=== PATIENT | female | born 1935 | race Caucasian/White ===

== ENCOUNTER 2023-11-28 11:00 | Emergency (ER) | payer MEDICARE, SELFPAY ==
[2023-11-28 11:06] VITALS: BP 140/94
[2023-11-28 11:19] VITALS: BMI 33.9
[2023-11-28 11:36] VITALS: BP 127/50
[2023-11-28 11:40] LABS: % Basophils 0.9 % (0-2); % Eosinophils 4.7 % (0-6); % Immature Granulocytes 0.4 % (0-0.5); % Lymphocytes 20.1 % (20.5-51.1); % Monocytes 9.9 % (1.7-9.3); Absolute Basophils 0.1 10^3/uL (0-0.2); Absolute Eosinophils 0.5 10^3/uL (0-0.7); Absolute Lymphocytes 2.3 10^3/uL (1.2-3.4); Absolute Monocytes 1.1 10^3/uL (0.1-0.6); Absolute Neutrophils 7.3 10^3/uL (1.4-6.5); Hematocrit 36.7 % (37.0-47.0); Hemoglobin 11.9 g/dL (12.0-16.0); Mean Corp Hgb Conc. 32.4 g/dL (33.0-37.0); Mean Corpuscular Hgb 30.1 pg (27.0-31.0); Mean Corpuscular Volume 92.7 fL (81.0-99.0); Mean Platelet Volume 10.1 fL (7.4-10.4); Nucleated Red Blood Cells % 0 %; Platelet Count 659 10^3/uL (130-400); Red Blood Cell Count 3.96 10^6/uL (4.20-5.40); Red Cell Dist. Width 14.4 % (11.5-14.5); White Blood Cell Count 11.4 10^3/uL (4.8-10.8)
[2023-11-28 11:54] LABS: Blood Urea Nitrogen 40 mg/dl (7-17); Calcium 9.9 mg/dl (8.4-10.2); Carbon Dioxide 27 mmol/L (22-30); Chloride 108 mmol/L (98-107); Estimated Creatinine Clearance 33 ml/min; Glucose 96 mg/dl (70-99); Potassium 4.5 mmol/L (3.5-5.1); Sodium 139 mmol/L (135-145); eGFR 43.54
[2023-11-28 12:00] VITALS: BP 109/97
[2023-11-28 12:04] LABS: Troponin I < 0.012 ng/ml
--- NOTE | 2023-11-28 13:00 | ED.GENMED ---
History of Present Illness
General
Chief Complaint: Swelling
Source: patient and family
Exam Limitations: none
Time Seen by Provider: 11/28/23 11:16
Travel History
Have you had any contact with someone who has COVID-19?: No
Do you have any symptoms of coronavirus? Fever > 100 degrees, chills, cough, shortness of breath, sore throat, loss of taste or smell, muscle aches, or headache?: No
History of Present Illness
History of Present Illness:
87-year-old female with brief left arm pain at 01/16/1931 this morning. [place] like she had cramping in both hands at the time. Lasted about 30 minutes. No chest pain shortness of breath diaphoresis or other complaints. Has been asymptomatic since
then. Seen in urgent care who recommended ER evaluation. Of note, no swelling noted in disagreement with triage note
Past History
Past History
ED Past Medical History: Arrthythmia (Atrial fibrillation), HTN and Other (PNA, polymyalgia rheumatica, skin cancer, osteoarthritis, CHF, elevated TSH, ARF, afib,)
ED Past Surgical History: None
Social History
Tobacco: Non-smoker
Alcohol: Occasional
Personal:
Living: with family (Currently residing at a local senior care for rehabilitation)
Employment: Retired
Family History
Family History: Other (Noncontributory)
Review of Systems
Review of Systems
All Other Systems: Not applicable
Cardiac: Denies chest pain or syncope
ABD/GI: Reports no symptoms
Phy Exam
Physical Exam
Physical Exam:
GENERAL: Alert and oriented in no apparent distress
EYE: Orbits normal.
NECK: Supple
CARDIAC: Regular rate and rhythm without any obvious murmurs.
LUNGS: Clear breath sounds,normal
ABDOMEN: Soft, without focal tenderness or distention
NEUROLOGICAL: Alert and oriented , grossly non-focal
SKIN: Warm and dry, no rash or lesion, no discoloration, skin intact.
MUSCULOSKELETAL: No edema,no deformity.Good color. 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 No arm swelling. Good distal pulses and color
PSYCH: Normal and appropriate interaction.
Scores
Heart Failure Risk
Heart Failure Risk Score: Not Applicable
Course
Orders/Labs/Results
Orders:
Orders
11/28/23 11:25
Electrocardiogram (*1) Stat
Reason for Study: Other
Other Reason for Exam: chest pain
Cardiac Monitoring- Treatment ONCE
EKG- Treatment ONCE
IV Insert/Care/Rem.- Treatment PRN
CR Chest - 2 Views Urgent
Comment:
Reason For Exam: Transient left arm pain
Pulse Ox/cont/shift [RESP] Stat
Quantity: 1
11/28/23 11:29
Basic Metabolic Panel Urgent
Complete Blood Count/With Diff Urgent
Troponin I Urgent
Abnormal Lab Results
11/28/23
11:29
WBC 11.4 H 10^3/uL
(4.8-10.8)
RBC 3.96 L 10^6/uL
(4.20-5.40)
Hgb 11.9 L g/dL
(12.0-16.0)
Hct 36.7 L %
(37.0-47.0)
MCHC 32.4 L g/dL
(33.0-37.0)
Plt Count 659 H 10^3/uL
(130-400)
Absolute Neuts (auto) 7.3 H 10^3/uL
(1.4-6.5)
Absolute Monos (auto) 1.1 H 10^3/uL
(0.1-0.6)
Lymphocytes % 20.1 L %
(20.5-51.1)
Monocytes % 9.9 H %
(1.7-9.3)
Chloride 108 H mmol/L
(98-107)
BUN 40 H mg/dl
(7-17)
Creatinine 1.2 H mg/dL
(0.6-1.0)
11/28/23 11:29
11/28/23 11:29
Vital Signs
Initial and Last Documented VS:
Initial Vital Signs
Temp Pulse Resp BP Pulse Ox
98.8 F 55 18 140/94 96
11/28/23 11:06 11/28/23 11:06 11/28/23 11:06 11/28/23 11:06 11/28/23 11:06
Last Documented Vital Signs
Temp Pulse Resp BP Pulse Ox
98.8 F 54 17 109/97 94
11/28/23 11:06 11/28/23 11:45 11/28/23 11:45 11/28/23 12:00 11/28/23 11:45
*Radiology
Radiology exam reviewed: radiology read reviewed (Negative)
*Pulse Oximetry
Patient hypoxic: no
*EKG
Interpreted by ED Provider?: Yes
Interpretation: normal
Comparison EKG: changes noted
Heart Rate: 57
Rate: bradycardiac
Rhythm: sinus
Fellows: normal axis
Interval: normal interval
QRS Pattern: normal QRS
Ischemia: no ischemia
*Critical Care Note
Total Time (30-74mins, 75-104mins- exclusive of procedures): Not Applicable
Update Note
Update Note:
Patient with transient left arm pain earlier this morning along with cramping of both hands. Do not feel repeat cardiac testing is warranted given the time course. Medically stable asymptomatic. Stable for discharge to follow-up
ED Attending Note
-
Portions of this chart may have been created with voice recognition software.� Occasional wrong word or��sound alike� substitutions may have occurred due to the inherent limitations of voice recognition software.
Discharge Plan
Departure
Patient Disposition: Home (Routine Discharge)
Date of Disposition: 11/28/23
Time of Disposition: 13:04
Patient with high blood pressure during this ER visit?: No
Discharge Problem:
Transient left arm pain, Chronic thrombocytosis, Chronic mild renal insufficiency
Prescriptions:
No Action
cholecalciferol (vitamin D3) 2,000 UNITS tablet
2,000 units PO DAILY
multivitamin with folic acid [Tab-A-Eris] 1 TABLET tablet
1 tab PO Q48H
omega 4-[id number]-fish oil [Fish Oil] 1 EACH capsule
1,200 mg PO DAILY Qty: 0
gabapentin 300 MG capsule
300 mg PO BID
furosemide 20 MG tablet
20 mg PO Q48H
atenolol 50 MG tablet
50 mg PO DAILY
B-complex with vitamin C 1 CAPLET tablet
1 cap PO Q48H
Glucosamine Sulf-Chondroitin 1 EACH capsule
1,500 mg PO BID
docusate sodium 100 MG capsule
200 mg PO DAILY
fluticasone propionate 1 SPRAY spray,suspension
1 spray intranasal BID PRN (Reason: congestion/post nasal drip)
hydrochlorothiazide 25 MG tablet
25 mg PO DAILY Qty: 30 11RF
Eliquis 5 MG tablet
5 mg PO BID Qty: 60 11RF
atorvastatin 40 MG tablet
40 mg PO QPM Qty: 30 0RF
acetaminophen 650 mg Tablet Extended Release
650 mg PO DAILY
fluticasone propion-salmeterol [Advair Diskus] 500-50 mcg/dose blister with device
1 ea INHALATION R BID
candesartan 32 mg tablet
32 mg PO DAILY
albuterol sulfate 90 mcg/actuation Hfa Aerosol Inhaler
2 puff INHALATION R Q6 PRN (Reason: sob/wheezing)
cinacalcet 30 mg tablet
30 mg PO DAILY
lidocaine 4 % Adhesive Patch,Medicated
1 patch topical DAILY Qty: 10 0RF
tramadol 50 mg Tablet
50 mg PO Q6HPRN PRN (Reason: moderate pain) Qty: 7 0RF
Referrals:
Ying Tatum DO [Family Provider] - Follow up in 2-3 days
Activity Restrictions/Additional Instructions:
Return with any chest pain shortness of breath nausea sweatiness recurring arm pain arm swelling or any other concerning symptoms
Interventions
Interventions:
*Risk Screen - Suicide Last Done: 11/28/23 11:06
*General Assessment Last Done: 11/28/23 11:06
*Neglect/Abuse Screening Last Done: 11/28/23 11:06
ED- Fall Risk Assessment Last Done: 11/28/23 11:19
*ED COVID-19 Vaccine History Last Done: 11/28/23 11:19
ED- Cardiac Assessment Last Done: 11/28/23 11:19
ED- Pulmonary Assessment Last Done: 11/28/23 11:19
ED-Skin Assessment Last Done: 11/28/23 11:19
[2023-11-28 13:36] VITALS: BP 110/82
== END 2023-11-28 13:37 | disposition home or self-care (01) ==
LOC: EMR 11:00
PROVIDERS: EMERGENCY PHYSICIAN Emergency Medicine; FAMILY PHYSICIAN Family Medicine
DX: M79.602 Pain in left arm (principal); D75.839 Thrombocytosis, unspecified; I13.0 Hypertensive heart and chronic kidney disease with heart failure and stage 1 through stage 4 chronic kidney disease, or unspecified chronic kidney disease; I50.9 Heart failure, unspecified; N18.2 Chronic kidney disease, stage 2 (mild); I48.91 Unspecified atrial fibrillation; M19.90 Unspecified osteoarthritis, unspecified site; M35.3 Polymyalgia rheumatica; Z85.828 Personal history of other malignant neoplasm of skin
CPT/HCPCS: 99283; 71046; 80048; 84484; 85025; 93005

== ENCOUNTER → 2024-05-19 13:03 | Outpatient (REF) | payer MEDICARE, SELFPAY | LOC: HWRAD 13:03 | PROVIDERS: ATTENDING PHYSICIAN Internal Medicine Rheumatology; FAMILY PHYSICIAN Family Medicine | DX: Z13.820 Encounter for screening for osteoporosis (principal) | CPT/HCPCS: 77080 ==